=== PATIENT | male | born 1965 | race Caucasian/White ===

== ENCOUNTER → 2019-01-08 | Outpatient (CLI) | payer OTHER ==
--- NOTE | 2019-01-08 11:38 | Diagnostic Imaging Report ---
Ultrasound guided thyroid FNA. History: Thyroid nodule. Comparison: Outside ultrasound 12/24/2018 EBL: < 5 cc. Specimen: 4 FNA samples, given to pathology. Discussion: Transverse and longitudinal images of the thyroid were obtained demonstrating a 2.2 cm solid left thyroid nodule. After informed consent was obtained, the patient's neck was prepped and draped in a sterile fashion. The skin was anesthetized with 1% lidocaine without epinephrine. Using ultrasound guidance, the left thyroid nodule was aspirated using 25-gauge needles. Samples were given to pathology for adequacy check. The patient tolerated procedure well without evidence of immediate complication. IMPRESSION: Successful ultrasound guided thyroid fine needle aspiration. Signed by: Dave Calle on 01/08/2019 11:34 AM
== END ==
LOC: EDBD → US 09:11
DX: E04.1 Nontoxic single thyroid nodule (principal)
CPT/HCPCS: 10007; 88172; 88173